=== PATIENT | female | born 1935 | race Caucasian/White ===

== ENCOUNTER 2017-01-31 21:57 | Inpatient (IN) ==
[2017-01-31] MEDS ORDERED: 0.9 % SODIUM CHLORIDE 1,000 ML IV ONE (22:11)
[2017-01-31] MEDS ORDERED: ONDANSETRON 4 MG/2 ML VIAL IV ONE (22:45)
[2017-01-31] MEDS ORDERED: HYDROmorphone 2 MG/ML SYRINGE IV PRN (22:45)
[2017-01-31] MEDS ORDERED: HYDROmorphone 2 MG/ML SYRINGE ONE (22:52)
--- NOTE | 2017-01-31 22:56 | Emergency Department Note ---
Lower Extremity Injury HPI - General Chief Complaint: Extremity Injury, Lower Stated Complaint: Left Hip injury Time Seen by Provider: 01/31/17 22:43 Mode of arrival: EMS - History of Present Illness HPI Narrative: Patient states she tripped over her walker landing on the left hip. Denies any history of head injury, there is no history of any syncope, no recent fever or chills she denies any nausea vomiting or headache. Denies any distal numbness, she is brought in by ambulance, not able to put any weight on her left leg. She was given 75 g of fentanyl en route. MD complaint: hip injury - Related Data Previous Rx's Medication Instructions Recorded omega-3 fatty acids-fish oil 300 1 each PO DAILY #30 cap 04/18/16 mg-1,000 mg capsule loratadine 10 mg tablet 10 mg PO DAILY #90 tab 09/12/16 citalopram 20 mg tablet 20 mg PO DAILY #90 tab 10/27/16 lisinopril 20 1 tab PO DAILY #90 tab 10/27/16 mg-hydrochlorothiazide 12.5 mg tablet aspirin 81 mg tablet,delayed 81 mg PO DAILY #90 tab 11/03/16 release metformin ER 500 mg 500 mg PO DAILY #90 tab 11/03/16 tablet,extended release 24 hr nadolol 20 mg tablet 20 mg PO DAILY #90 tab 11/03/16 furosemide 20 mg tablet 20 mg PO QDAY #30 tab 01/25/17 Allergies Allergy/AdvReac Type Severity Reaction Status Date / Time No Known Drug Allergies Allergy Verified 01/25/17 16:29 Review of Systems All systems ED: reviewed and negative except as stated. Past Medical History - Past Medical History Medical history: Reports: CVA, diabetes, hyperlipidemia, hypertension, other ( Chronic pain, peptic ulcer disease) Surgical history ED: Reports: , cholecystectomy Family history: Reports: no significant family history - Social History smoking status: Never smoker Alcohol use: Reports: None Physical Exam - General Limitations: no limitations General appearance: alert, in distress - Head Head exam: atraumatic, normocephalic, normal inspection - Eye Eye exam: Present: normal appearance, PERRL, EOMI. Absent: scleral icterus - ENT ENT exam: normal exam, normal oropharynx, mucous membranes moist, TM's normal bilaterally, normal external ear exam - Neck Neck exam: Present: normal inspection, full ROM, trachea midline - Chest Chest inspection: Present: normal inspection. Absent: tenderness - Respiratory Respiratory exam: Present: normal lung sounds bilaterally. Absent: respiratory distress, wheezes - Cardiovascular Cardiovascular exam: Present: regular rate, normal heart sounds - Abdominal Exam Abdominal exam: Present: soft, normal bowel sounds. Absent: distention, tenderness, guarding - Extremities Exam Extremities exam: Present: tenderness, joint swelling, other (externally rotated and shortened left leg, tender ov over the trochanter and left groi). Absent: calf tenderness - Back Exam Back exam: Present: full ROM. Absent: CVA tenderness (R), CVA tenderness (L), vertebral tenderness - Neurological Exam Neurological exam: Present: alert, oriented X3, CN II-XII intact. Absent: motor sensory deficit - Psychiatric Psychiatric exam: Present: normal affect, normal mood - Skin Skin exam: Present: warm, dry, intact Course Vital Signs Temperature 97.0 F 01/31/17 21:58 Pulse Rate 92 H 01/31/17 21:58 Respiratory Rate 18 01/31/17 21:58 Blood Pressure 125/70 01/31/17 21:58 Pulse Oximetry (%) 91 01/31/17 21:58 Temperature 97.0 F 01/31/17 21:58 Pulse Rate 92 H 01/31/17 21:58 Respiratory Rate 18 01/31/17 21:58 Blood Pressure 125/70 01/31/17 21:58 Pulse Oximetry (%) 91 01/31/17 21:58 Extremity Injury, Lower - MDM Narrative Medical decision making narrative: impression is left femoral neck frac Fracture plan is hospital admiss, discussed with Dr. Chauhan and Dr. Murrieta - Radiology Data Radiology results reviewed: Yes I reviewed the patient's radiology results. Disposition Pt seen by [facility]ORIST HELPER/PA only: No Clinical Impression: Fracture of hip Disposition: Xfer As Inpt ([facility]) Condition: Fair Referrals: Chuck Isabel DO [Primary Care Provider] -
[2017-01-31] MEDS ORDERED: MAGNESIUM HYDROXIDE 30 ML ORAL.SUSP PO PRN (23:29)
[2017-01-31] MEDS ORDERED: DEXTROSE 50% 50 ML VIAL IV PRN (23:29)
[2017-01-31] MEDS ORDERED: ONDANSETRON 4 MG/2 ML VIAL IV PRN (23:29)
[2017-01-31] MEDS ORDERED: ALBUTEROL SULFATE 2.5 MG/3 ML NEBULIZER NEB PRN (23:29)
[2017-01-31] MEDS ORDERED: DOCUSATE SODIUM 100 MG CAPSULE PO PRN (23:29)
[2017-01-31] MEDS ORDERED: NALOXONE HCL 0.4 MG/ML VIAL IV PRN (23:29)
[2017-01-31] MEDS ORDERED: ACETAMINOPHEN 325 MG TABLET PO PRN (23:29)
[2017-01-31] MEDS: POTASSIUM CHLORIDE 20 MEQ in 0.9 % SODIUM CHLORIDE 1,000 ML IV SCH (23:54)
[2017-02-01 00:07] LABS: Basophils # (Auto) 0.1 K/mcL (0.0-0.3); Basophils % (Auto) 0.5 % (0.0-2.0); Eosinophils # (Auto) 0.4 K/mcL (0.0-0.7); Eosinophils % (Auto) 3.5 % (0.0-7.0); Granulocytes % (Auto) 75.4 % (38.0-78.0); Lymphocytes # (Auto) 1.6 K/mcL (1.5-4.8); Lymphocytes % (Auto) 14.6 % (15.5-49.0); Mean Cell Volume 86.8 fL (80.0-100.0); Mean Corpuscular HGB Conc 33.6 g/dL (31.0-36.0); Mean Corpuscular Hemoglobin 29.2 pg (26.0-34.0); Monocytes # (Auto) 0.6 K/mcL (0.1-0.9); Platelet Count 256 K/mcL (140-440); RBC 4.55 M/mcL (4.00-5.20); Red Cell Distribution Width 13.7 % (11.5-14.5)
[2017-02-01 00:26] LABS: ALT/SGPT 32 U/l (0-40); Albumin 3.7 gm/dL (3.2-5.2); Albumin/Globulin Ratio 1.3 (1.0-2.3); Alkaline Phosphatase 55 U/L (39-117); Blood Urea Nitrogen 29 mg/dl (8-23)
[2017-02-01] MEDS: INSULIN LISPRO 1 UNIT/0.01 ML UNIT SQ SCH ×5 (00:33→22:13)
[2017-02-01] MEDS: 0.9 % SODIUM CHLORIDE 10 ML SYRINGE IV SCH ×3 (05:22→22:08)
[2017-02-01 05:55] LABS: Basophils # (Auto) 0 K/mcL (0.0-0.3); Basophils % (Auto) 0 % (0.0-2.0); Eosinophils # (Auto) 0.1 K/mcL (0.0-0.7); Eosinophils % (Auto) 0.7 % (0.0-7.0); Granulocytes % (Auto) 79.2 % (38.0-78.0); Lymphocytes # (Auto) 1.6 K/mcL (1.5-4.8); Lymphocytes % (Auto) 13.5 % (15.5-49.0); Mean Cell Volume 87.7 fL (80.0-100.0); Mean Corpuscular HGB Conc 33.2 g/dL (31.0-36.0); Mean Corpuscular Hemoglobin 29.2 pg (26.0-34.0); Monocytes # (Auto) 0.8 K/mcL (0.1-0.9); Monocytes % (Auto) 6.6 % (1.0-12.0); Platelet Count 236 K/mcL (140-440); RBC 4.37 M/mcL (4.00-5.20); Red Cell Distribution Width 13.5 % (11.5-14.5)
[2017-02-01 06:18] LABS: ALT/SGPT 86 U/l (0-40); Albumin 3.6 gm/dL (3.2-5.2); Albumin/Globulin Ratio 1.4 (1.0-2.3); Alkaline Phosphatase 51 U/L (39-117); Bilirubin,Direct < 0.2 mg/dL (0.0-0.3); Blood Urea Nitrogen 26 mg/dl (8-23); Gamma Glutamyl Transpeptidase 133 U/L (5-36); Uric Acid 7.8 mg/dL (2.5-8.0)
--- NOTE | 2017-02-01 06:27 | XRay Report ---
CLINICAL INFORMATION: Trauma COMPARISON: None. FINDINGS: A mildly comminuted, obliquely oriented subtrochanteric fracture of the left hip is present. There is 1 cm medial and anterior displacement of the distal femoral diaphysis. Mild coxa vera angulation. Mild degenerative changes are present in both SI and right hip joint. Left hip joint appears normal. Soft tissues are unremarkable IMPRESSION: Obliquely oriented, mildly displaced subtrochanteric fracture of the left hip Interpreted and Authenticated by: Chuck Kay 02/01/17
[2017-02-01 06:28] LABS: Estimated Average Glucose(eAG) 128 mg/dL; Hemoglobin A1C 6.1 % HGB (4.0-6.0)
--- NOTE | 2017-02-01 06:28 | XRay Report ---
CLINICAL INFORMATION: Trauma COMPARISON: 09/26/2005 FINDINGS: Heart size, mediastinum and pulmonary vessels are normal. The lungs are clear. No effusions. Moderate elevation of the right diaphragm has progressed from previous study. IMPRESSION: Moderate elevation right diaphragm progressed from previous study. No acute findings Interpreted and Authenticated by: Chuck Kay 02/01/17
--- NOTE | 2017-02-01 07:23 | Internal Med History&Physical ---
Medical - H&P: HPI Patient information: Note initiated : 02/01/17 at 7:21 am Service Date, if different from initiated Date: [] Patient: Trang Caraballo 81 y/o F admitted on 01/31/17 for Left Hip injury. Chief Complaint: [] History of present illness: Ms. Caraballo is a 81 year old woman who lives at [facility] in an assisted living apartment. She says yesterday she was walking towards her bathroom with a walker, and the walker seem to get away from her moving forward, and she could not catch herself, and then fell. She had immediate pain in the left hip. She reports she is also been having a lot of pain in the left knee lately, and is not sure that she is not having side effects from medication she was given for that. She says she has also been feeling a little dizzy with some changes in her medications lately. She has had some occasional nausea but not persistent. She notes that the walker she was using was brand-new and had wheels. Otherwise, she denies recent fever or chills, headaches, new eye or ear symptoms , sore throat. She notes she has had a cough for several months, which she blames on allergies. She denies chest pain or palpitations, shortness of breath or wheezing, abdominal pain, nausea or vomiting, diarrhea or constipation , dysuria. ER evaluation did show a fracture of her left hip. Medical History Compression fracture of lumbar vertebra (Chronic) Diabetes mellitus (Chronic) Hyperlipidemia (Chronic) Major depressive disorder with single episode (Chronic) PUD (peptic ulcer disease) (Chronic) Right shoulder pain (Chronic) from fall Rotator cuff strain (Chronic) right Seborrheic keratoses (Chronic) Status post right knee replacement (Chronic) Surgical History History of cholecystectomy (Chronic) Medication List Furosemide 20 mg daily aspirin 81 mg PO DAILY citalopram 20 mg PO DAILY lisinopril-hydrochlorothiazide 20-12.5 mg 1 tab PO DAILY loratadine 10 mg PO DAILY metformin ER 500 mg PO DAILY nadolol 20 mg PO DAILY omega-3 fatty acids-fish oil 300-1,000 mg 1 ea PO DAILY Allergies/Adverse Reactions No Known Drug Allergies Allergy Social History smoking status: Never smoker alcohol intake frequency: does not drink substance use type: does not use She lives at [facility]. She is a . She has 1 of her children that lives nearby. Another lives out of town. Family history: She believes her sister had a stroke. Her father may have had heart disease. Medical - H&P: Meds Home Medications Medication Instructions Recorded Confirmed Type omega-3 fatty acids-fish oil 300 1 each PO DAILY #30 cap 04/18/16 02/01/17 Rx mg-1,000 mg capsule loratadine 10 mg tablet 10 mg PO DAILY #90 tab 09/12/16 02/01/17 Rx citalopram 20 mg tablet 20 mg PO DAILY #90 tab 10/27/16 02/01/17 Rx lisinopril 20 1 tab PO DAILY #90 tab 10/27/16 02/01/17 Rx mg-hydrochlorothiazide 12.5 mg tablet aspirin 81 mg tablet,delayed 81 mg PO DAILY #90 tab 11/03/16 02/01/17 Rx release metformin ER 500 mg 500 mg PO DAILY #90 tab 11/03/16 02/01/17 Rx tablet,extended release 24 hr nadolol 20 mg tablet 20 mg PO DAILY #90 tab 11/03/16 02/01/17 Rx furosemide 20 mg tablet 20 mg PO QDAY #30 tab 01/25/17 02/01/17 Rx Allergies Allergy/AdvReac Type Severity Reaction Status Date / Time No Known Drug Allergies Allergy Verified 01/25/17 16:29 Medical - H&P: Exam - Constitutional Vitals: Temp Pulse Resp BP Pulse Ox 97.6 F 105 H 20 155/75 96 02/01/17 03:14 02/01/17 03:14 02/01/17 03:14 02/01/17 03:14 02/01/17 03:14 On exam, she is awake and alert. She continues to complain of pain starting in the left hip and running down to her knee as well as up into her side. She is otherwise not in acute distress. Head: Normocephalic, atraumatic. Eyes: Pupils are fairly pinpoint, EOMI, anicteric. Ears: TMs and canals are clear. Pharynx: Mucosa appears normal. The pharynx is quite crowded. Maladies are noted. Neck: Is supple, without obvious lymphadenopathy, JVD, thyromegaly, bruits. Cardiac exam: Shows regular rate and rhythm with normal S1 and S2, without murmurs, rubs, gallops. Lungs: Clear to auscultation, without rales, rhonchi, wheezes. Abdomen: Is obese with a well-healed lower midline scar. Abdomen is soft and nontender with active bowel sounds. Extremities: Show trace chronic edema, but no cyanosis or clubbing. Left leg is held in external rotation. She is able to move her feet and toes fine and neurovascular is intact. Neurologic exam: Patient is rather forgetful, but motor exam is grossly nonfocal. She is alert, calm and cooperative. Medical - H&P: Reslt - Labs CBC & Chem 7: 02/01/17 04:15 02/01/17 04:15 Labs: Short CBC 02/01/17 Range/Units 04:15 WBC 12.2 H (4.5-11.0) K/mcL Hgb 12.7 (12.0-15.0) g/dL Hct 38.3 (36.0-48.0) % Plt Count 236 (140-440) K/mcL BMP 02/01/17 04:15 Sodium 142 Potassium 4.3 Chloride 104 Carbon Dioxide 28 BUN 26 H Creatinine 0.9 Glucose 147 H Calcium 8.7 Liver Function 02/01/17 Range/Units 04:15 Total Bilirubin 0.4 (0.0-1.0) mg/dL Direct Bilirubin < 0.2 (0.0-0.3) mg/dL GGT 133 H (5-36) U/L AST 133 H (0-37) U/l ALT 86 H (0-40) U/l Alkaline Phosphatase 51 (39-117) U/L Albumin 3.6 (3.2-5.2) gm/dL Ekg shows ST at 100, low voltage. CXR: NAD Hip xray: L subtroch. fx Medical - H&P: A/P - Narrative A/P Narrative: #1. Left hip fracture. Orthopedic consult, with presumed surgical repair today. Patient appears to be fairly low risk for surgical complications, other than her age. -Physical therapy and occupational therapy evaluations postop. Hopefully they can assess whether the walker she was using is appropriate for her. 2. Endocrine. Type 2 diabetes. Accu-Cheks and sliding scale insulin. Maintenance IV fluids while n.p.o.. Resume metformin once she is eating well. 3. CODE STATUS: Chart notes a DNR CODE STATUS. Patient confirms this. She would like either her son or her daughter to act as her POA. 4. DVT prophylaxis: This will need to be started postop. SCDs for now. 5. History of hypertension Resume aspirin, nadolol, lisinoprilHCTZ, when stable. Lasix is on hold for now, while she is n.p.o. 6. Hyperlipidemia #7. History of depression. Resume citalopram after surgery. 8. History of allergies. Resume loratadine. This visit took approximately 55 minutes to review the patient's records, review her case with the ER MD, interview and examine her, and write orders. Medical - H&P: Qual - VTE Deep Vein Thrombosis/Pulmonary Embolism Present on Admission: No
--- NOTE | 2017-02-01 08:16 | Orthopedic History & Physical ---
History of Present Illness Patient information: Note initiated : 02/01/17 at 8:13 am Service Date, if different from initiated Date: [] Patient: Trang Caraballo 81 y/o F admitted on 01/31/17 for Left Hip injury. Chief Complaint: [left hip fracture] Patient is an 81 year old female who was walking with her walker when she felt it give way and she landed on her left hip. She denies hitting her head or losing consciousness during the event. She was transported to [facility] and found to have a left displaced subtrochanteric hip fracture and was admitted overnight for pain control and observation. She currently lives alone in an apartment complex. She denies any complications with her prior surgeries under anesthesia and denies a PMH of CVA, DVT or TIA. She currently denies numbness, tingling of the extremities as well as no CP, SOB, calf pain or tenderness. HPI: Ms. Caraballo is a 81 year old F Review of Systems All systems PM: reviewed and no additional remarkable complaints except as stated Constitutional: as per HPI Cardiovascular: no chest pain Respiratory: no dyspnea Musculoskeletal: abnormal gait, muscle cramps, muscle weakness, no numbness, no tingling Musculoskeletal: left: hip pain Neurological: no numbness, no paresthesias Past History Past medical history: see hospitalist note Medications and Allergies Home Medications Medication Instructions Recorded Confirmed Type omega-3 fatty acids-fish oil 300 1 each PO DAILY #30 cap 04/18/16 02/01/17 Rx mg-1,000 mg capsule loratadine 10 mg tablet 10 mg PO DAILY #90 tab 09/12/16 02/01/17 Rx citalopram 20 mg tablet 20 mg PO DAILY #90 tab 10/27/16 02/01/17 Rx lisinopril 20 1 tab PO DAILY #90 tab 10/27/16 02/01/17 Rx mg-hydrochlorothiazide 12.5 mg tablet aspirin 81 mg tablet,delayed 81 mg PO DAILY #90 tab 11/03/16 02/01/17 Rx release metformin ER 500 mg 500 mg PO DAILY #90 tab 11/03/16 02/01/17 Rx tablet,extended release 24 hr nadolol 20 mg tablet 20 mg PO DAILY #90 tab 11/03/16 02/01/17 Rx furosemide 20 mg tablet 20 mg PO QDAY #30 tab 01/25/17 02/01/17 Rx Allergies Allergy/AdvReac Type Severity Reaction Status Date / Time No Known Drug Allergies Allergy Verified 01/25/17 16:29 Physical Examination - Hip left Gait: other (non WB, shortened and externally rotated) Tenderness with palpation: anterior, posterior, medial, lateral, greater trochanter Pain with motion: internal rotation and hip flexion, internal rotation and hip extension, external rotation and hip flexion, external rotation and hip extension Results - Labs Result Diagrams: 02/01/17 04:15 02/01/17 04:15 Labs: Abnormal lab results 02/01/17 02/01/17 Range/Units 04:15 04:15 WBC 12.2 H (4.5-11.0) K/mcL Gran % 79.2 H (38.0-78.0) % Lymph % (Auto) 13.5 L (15.5-49.0) % Gran # 9.6 H (1.8-8.0) K/mcL BUN 26 H (8-23) mg/dl Glucose 147 H (70-105) mg/dL Hemoglobin A1c 6.1 H (4.0-6.0) % HGB GGT 133 H (5-36) U/L AST 133 H (0-37) U/l ALT 86 H (0-40) U/l Lactate Dehydrogenase 291 H (94-250) U/L H & H 02/01/17 Range/Units 04:15 Hgb 12.7 (12.0-15.0) g/dL Hct 38.3 (36.0-48.0) % All other labs normal. - Diagnostic results Hip x-ray: report reviewed, image reviewed Assessment and Plan (1) Fracture of hip Left displaced subtrochanteric hip fracture: Plan is for a left hip ORIF with gamma nail later today with Dr. Chauhan. The procedure was discussed in its entirety with the patient including the benefits and risks associated as well as the risks of anesthesia. She was counseled on the post op course and all questions were answered. No guarantees were made. The patient understands all risks therein and wishes to proceed with surgery later today. -hold all blood thinners -pain control -NPO -DVT prophylaxis -medical care per hospitalist Status: Acute
[2017-02-01 08:29] LABS: Appearance,Urine HAZY; Bacteria,Urine FEW /hpf (0); Bilirubin,Urine NEG (NEG); Color,Urine YELLOW; Glucose,Urine (UA) NEGATIVE (NEG); Leukocyte Esterase,Urine 500 /uL (NEG); Mucus,Urine FEW /hpf (0); Nitrate,Urine NEG (NEG); Protein,Urine 100 mg/dL (NEG); Specific Gravity,Urine 1.017 (1.000-1.035); Uric Acid Crystals,Urine FEW /hpf (0); Urine Blood >=1.0 mg/dL (<0.03); Urine RBC > 182 /hpf (0-1); Urine Squamous Epithelial Cell < 1 /hpf (0-4); Urine WBC 124 /hpf (0-4); Urobilinogen,Urine NEG (NEG)
[2017-02-01] MEDS ORDERED: ASPIRIN 325 MG ENTERIC COATED TABLET PO SCH (09:00)
[2017-02-01] MEDS ORDERED: ceFAZolin 1 GM VIAL IV SCH ×2 (09:00→22:00)
[2017-02-01] MEDS: POTASSIUM CHLORIDE 20 MEQ in 0.9 % SODIUM CHLORIDE 1,000 ML IV SCH (10:47)
[2017-02-01] MEDS ORDERED: MIDAZOLAM 2 MG/2 ML VIAL IV ONE (14:35)
[2017-02-01] MEDS ORDERED: DEXAMETHASONE 10 MG/ML VIAL IV ONE (14:35)
[2017-02-01] MEDS ORDERED: NALBUPHINE 10 MG/ML AMPUL IV ONE (14:35)
[2017-02-01] MEDS ORDERED: PROPOFOL 200 MG/20 ML VIAL IV ONE (14:35)
[2017-02-01] MEDS ORDERED: LIDOCAINE HCL/PF 100 MG/5 ML SYRINGE IV ONE (14:35)
[2017-02-01] MEDS ORDERED: ONDANSETRON 4 MG/2 ML VIAL IV ONE (14:35)
[2017-02-01] MEDS ORDERED: fentaNYL 100 MCG/2 ML VIAL IV ONE (14:35)
[2017-02-01] MEDS ORDERED: MEPERIDINE 25 MG/ML SYRINGE IV PRN (15:05)
[2017-02-01] MEDS ORDERED: fentaNYL 100 MCG/2 ML VIAL IV PRN (15:05)
[2017-02-01] MEDS ORDERED: diphenhydrAMINE 50 MG/ML VIAL IV PRN (15:05)
[2017-02-01] MEDS ORDERED: HYDROmorphone 2 MG/ML SYRINGE IV PRN ×3 (15:05→18:40)
[2017-02-01] MEDS ORDERED: IPRATROPIUM/ALBUTEROL 3 ML AMPUL.NEB NEB PRN (15:05)
[2017-02-01] MEDS ORDERED: NALOXONE HCL 0.4 MG/ML VIAL IV PRN ×2 (15:05→18:40)
[2017-02-01] MEDS ORDERED: FLUMAZENIL 0.1 MG/ML ML IV PRN (15:05)
[2017-02-01] MEDS ORDERED: ONDANSETRON 4 MG/2 ML VIAL IV PRN ×2 (15:05→18:40)
[2017-02-01] MEDS ORDERED: LACTATED RINGERS 250 ML IV PRN (15:05)
[2017-02-01] MEDS ORDERED: BENZOCAINE/MENTHOL 1 LOZENGE PO PRN ×3 (15:05→18:40)
[2017-02-01] MEDS ORDERED: LACTATED RINGERS 1,000 ML IV SCH (15:15)
[2017-02-01] MEDS ORDERED: METHOCARBAMOL 750 MG TABLET PO PRN (15:29)
[2017-02-01] MEDS ORDERED: FLEETS ADULT ENEMA PR PRN (15:29)
[2017-02-01] MEDS ORDERED: HYDROcodone/APAP 10/325MG TABLET PO PRN (15:29)
[2017-02-01] MEDS ORDERED: POLYETHYLENE GLYCOL 3350 17 GM PACKET PO PRN ×2 (15:29→18:40)
[2017-02-01] MEDS ORDERED: BISACODYL 10 MG SUPP.RECT PR PRN ×2 (15:29→18:40)
[2017-02-01] MEDS ORDERED: MAGNESIUM HYDROXIDE 30 ML ORAL.SUSP PO PRN ×2 (15:29→18:40)
--- NOTE | 2017-02-01 15:29 | Brief Operative Note ---
Date of procedure: 02/01/17 Pre-op diagnosis: left hip intertrochanteric fx Post-op diagnosis: same Procedure: gamma nail left hip Grafts/Implants: Yes Anesthesia: GETA Complications: none Surgeon: Chuck Chauhan [facility] Social Worker: Gayla Le Estimated blood loss (cc): 50 Specimens Removed/Pathology: none sent Condition: stable Disposition: PACU
[2017-02-01] MEDS ORDERED: 0.9 % SODIUM CHLORIDE 1,000 ML IV SCH (15:30)
[2017-02-01] MEDS ORDERED: TRANEXAMIC ACID 1,000 MG/10 ML VIAL IV ONE (16:04)
--- NOTE | 2017-02-01 16:10 | Operative Note ---
DATE OF OPERATION: 02/01/2017 PREOPERATIVE DIAGNOSIS: Intertrochanteric/subtrochanteric fracture, left hip. POSTOPERATIVE DIGNOSIS: Intertrochanteric/subtrochanteric fracture, left hip. PROCEDURE: Left hip cephalomedullary nailing. SURGEON: Rosie Chauhan M.D. OIL SPREADER OPERATOR SURGEON: Gayla Le PA-C. ANESTHESIA: Spinal with LMA assist. ESTIMATED BLOOD LOSS: 100 mL. COMPLICATIONS: None noted. SPECIMENS REMOVED: None. DRAINS: None. IMPLANTS: Gamma3 nail 125 degree short with an 85 mm proximal screw and 32.5 x 5 mm distal screw. INDICATIONS: The patient fell and was unable to ambulate. Radiographs have confirmed a displaced intertrochanteric fracture of the proximal femur. The patient was admitted to the hospital and underwent medical clearance. After a long discussion about treatment options, the patient elected to proceed with cephalomedullary nailing. The risks and benefits were discussed with the patient in detail including, but not limited to, the risks of anesthesia, problems with the heart or lungs related to anesthesia, infection, compromise or injury to the nerves and blood vessels, deep venous thrombosis, pulmonary embolism, pneumonia, continued pain after surgery, worsening pain or symptoms after surgery, swelling, loss of motion, malunion, non-union, leg length discrepancy, and need for repeat surgery. DESCRIPTION OF PROCEDURE: The patient was seen in pre-anesthesia waiting room where all questions were answered and the correct side and site were identified and marked. The patient was then brought to the operating room and administered the anesthetic and given preoperative antibiotics. A time-out was then called. The patient was placed on the fracture table with all prominences well padded. The leg was brought into traction, adduction, and slight internal rotation. We used C-arm with orthogonal views to confirm anatomic reduction of the fracture. The extremity was prepped and draped in the usual sterile fashion. C-arm was again used to confirm landmarks. A percutaneous incision was created about 4 centimeters proximal to the greater trochanter. A guide pin was placed into the femoral canal under fluoroscopy after we found the appropriate starting position along the medial boarder of the trochanter and just anterior to the center position laterally. We placed a protector sleeve proximally and over-reamed with the 17 mm proximal reamer. Next, we changed out the guide pin for a ball-tipped guide mary and placed it into the femoral canal. Position was confirmed with the C-arm. The 180 mm [place] Gamma nail was then placed with appropriate depth and version using the percutaneous targeting guide. The lateral lag screw sleeve was placed in the targeting guide and a second small percutaneous incision was made to allow the sleeve access to the lateral cortex of the femur. We drilled the guide pin into the center - center position of the femoral head confirmed with fluoroscopy. We measured and drilled over the guide pin. The lag screw was then inserted and we compressed the fracture then placed the proximal screw. The targeting sleeve was again used to place a percutaneous 5.0 mm screw distally in the static hole. It was drilled, measured, and placed using C-arm guidance. Traction was removed on the hip. The targeting device was then removed and final radiographs were taken confirming reduction of the fracture and adequate placement of all hardware. We thoroughly irrigated the three percutaneous incisions and closed the deep fascia with #0 Vicryl. We closed the subcutaneous tissue and skin in layers out to brant in the skin. A sterile pressure dressing was applied. All needle and sponge counts were correct. The patient was transferred to the recovery room in stable condition. Jay Job ID: [id number] Doc ID: [id number] Rosie Chauhan MD
[2017-02-01] MEDS ORDERED: LABETALOL 5 MG/ML ML IV ONE (16:29)
--- NOTE | 2017-02-01 16:32 | XRay Report ---
CLINICAL INFORMATION: Follow subtrochanteric fracture COMPARISON: None. FINDINGS: Gamma nail transfixes the subtrochanteric fracture which is now anatomically aligned following reduction. Both SI joints unremarkable. Soft tissue swelling seen as expected. IMPRESSION: ORIF subtrochanteric fracture left hip anatomic alignment Interpreted and Authenticated by: Chuck Kay 02/01/17
[2017-02-01] MEDS ORDERED: DEXTROSE 50% 50 ML VIAL IV PRN ×2 (18:40)
[2017-02-01] MEDS ORDERED: POTASSIUM CHLORIDE 20 MEQ in 0.9 % SODIUM CHLORIDE 1,000 ML IV SCH (18:40)
[2017-02-01] MEDS ORDERED: DEXTROSE 31 GM ORAL.SUSP PO PRN (18:40)
[2017-02-01] MEDS ORDERED: DOCUSATE SODIUM 100 MG CAPSULE PO PRN (18:40)
[2017-02-01] MEDS ORDERED: ALBUTEROL SULFATE 2.5 MG/3 ML NEBULIZER NEB PRN (18:40)
[2017-02-01] MEDS: NACL 0.9% W/KCL 20MEQ 1,000 ML IV SCH (18:55)
[2017-02-01] MEDS ORDERED: DOCUSATE SODIUM 100 MG CAPSULE PO SCH (21:00)
[2017-02-01] MEDS ORDERED: SENNOSIDES 1 TABLET PO SCH (21:00)
[2017-02-01] MEDS: SENNOSIDES 1 TABLET PO SCH (22:03)
[2017-02-01] MEDS: ACETAMINOPHEN 325 MG TABLET PO PRN (22:04)
[2017-02-01] MEDS: ceFAZolin 1 GM VIAL IV SCH (22:05)
[2017-02-02] MEDS: ACETAMINOPHEN 325 MG TABLET PO PRN ×3 (04:10→16:54)
[2017-02-02] MEDS: NACL 0.9% W/KCL 20MEQ 1,000 ML IV SCH ×3 (04:37→16:54)
[2017-02-02] MEDS: ceFAZolin 1 GM VIAL IV SCH (05:28)
[2017-02-02] MEDS: 0.9 % SODIUM CHLORIDE 10 ML SYRINGE IV SCH ×3 (05:29→21:06)
[2017-02-02 06:09] LABS: Basophils # (Auto) 0 K/mcL (0.0-0.3); Basophils % (Auto) 0 % (0.0-2.0); Eosinophils # (Auto) 0 K/mcL (0.0-0.7); Eosinophils % (Auto) 0 % (0.0-7.0); Lymphocytes # (Auto) 0.7 K/mcL (1.5-4.8); Lymphocytes % (Auto) 7.2 % (15.5-49.0); Mean Cell Volume 87.9 fL (80.0-100.0); Mean Corpuscular HGB Conc 33.8 g/dL (31.0-36.0); Mean Corpuscular Hemoglobin 29.7 pg (26.0-34.0); Monocytes # (Auto) 0.7 K/mcL (0.1-0.9); Monocytes % (Auto) 6.8 % (1.0-12.0); Platelet Count 203 K/mcL (140-440); Red Cell Distribution Width 13.3 % (11.5-14.5)
[2017-02-02 06:41] LABS: ALT/SGPT 124 U/l (0-40); Albumin 3.1 gm/dL (3.2-5.2); Albumin/Globulin Ratio 1.2 (1.0-2.3); Alkaline Phosphatase 60 U/L (39-117); Bilirubin,Direct < 0.2 mg/dL (0.0-0.3); Blood Urea Nitrogen 19 mg/dl (8-23); Gamma Glutamyl Transpeptidase 159 U/L (5-36); Magnesium 1.9 mg/dL (1.6-2.5); Uric Acid 7.1 mg/dL (2.5-8.0)
--- NOTE | 2017-02-02 07:00 | Orthopedic Progress Note ---
Subjective Patient information: Note initiated : 02/02/17 at 6:59 am Service Date, if different from initiated Date: [] Patient: Trang Caraballo 81 y/o F admitted on 01/31/17 for Left Hip Injury/Left Hip Fracture. Chief Complaint: [] Interval history: doing well. no pain Objective Vital signs: Vital Signs Temp Pulse Resp BP Pulse Ox 02/02/17 04:00 98.0 F 89 12 140/78 94 02/01/17 23:53 98.1 F 99 H 16 125/74 94 02/01/17 19:52 137/79 96 02/01/17 17:44 85 145/66 96 02/01/17 17:25 82 152/69 02/01/17 17:08 87 12 152/69 97 02/01/17 16:55 90 12 145/67 93 02/01/17 16:40 97 F 90 12 145/67 93 02/01/17 16:30 99.1 F H 94 H 19 155/58 94 02/01/17 16:15 99.2 F H 92 H 13 192/103 100 02/01/17 16:10 95 H 13 161/91 99 02/01/17 16:05 88 10 L 165/78 97 02/01/17 16:00 89 10 L 170/45 97 02/01/17 15:55 98 H 11 L 186/90 97 02/01/17 15:50 99 H 13 184/92 100 02/01/17 15:45 97.3 F 88 12 141/89 97 02/01/17 12:00 97.3 F 20 143/69 94 02/01/17 07:39 98 02/01/17 07:25 97.1 F 20 147/71 94 Intake and Output 02/01/17 02/02/17 02/02/17 21:59 05:59 13:59 Intake Total 800 / 800 915 / 915 Output Total 1000 / 1000 275 / 275 Balance -200 / -200 640 / 640 Intake: IV 815 / 815 NaCl 0.9% W/KCl 20Meq 815 / 815 1000ML 1,000 ml @ 84 mls/ hr IV .[id number] [facility] Rx#: [id number] Oral 100 / 100 Other 800 / 800 Output: Urine Catheter Amount 275 / 275 Estimated Blood Loss 1000 / 1000 Other: Weight 176 lb Intake & Output: Intake & Output 02/01/17 02/02/17 02/02/17 21:59 05:59 13:59 Intake Total 800 / 800 915 / 915 Output Total 1000 / 1000 275 / 275 Balance -200 / -200 640 / 640 Weight 176 lb Intake: IV 815 / 815 NaCl 0.9% W/KCl 20Meq 815 / 815 1000ML 1,000 ml @ 84 mls/ hr IV .[id number] [facility] Rx#: [id number] Oral 100 / 100 Other 800 / 800 Output: Urine Catheter Amount 275 / 275 Estimated Blood Loss 1000 / 1000 Incision: Yes healing Dressing: Yes clean, Yes dry, Yes intact Weight bearing status: full Neurological exam IM: Yes abnormal gait, Yes alert, Yes oriented X3, Yes motor sensory intact, Yes neurovascular intact Extremities exam IM: No calf tenderness, Yes Foot pink and warm, Yes neurovascular intact - Labs CBC & BMP: 02/02/17 04:17 02/02/17 04:17 Labs: Orthopedic Labs 02/02/17 04:17 PT 14.5 INR 1.1 02/02/17 02/01/17 02/01/17 04:17 20:06 04:15 Hgb 11.0 L 12.4 12.7 Hct 32.5 L 37.0 38.3 Assessment and Plan (1) Fracture of hip pod 1 s/p left hip gamma nail wbat pain control dvt prophylaxis d/c planning - rehab when bed available Status: Acute
--- NOTE | 2017-02-02 07:01 | Discharge Summary ---
Ortho Discharge Plan - General - Patient Instructions Diet: Regular Diet Activity: activity as tolerated, ambulate with assistive device, weight bearing as tolerated Dressing Care: May shower in 2 days - Problem Maintenance (1) Fracture of hip Status: Acute - Follow Up Plan Follow Up Appointments: Chuck Isabel DO [Primary Care Provider] - Disposition: [facility] Prognosis: Fair Rehab Potential: Fair I certify that the patient requires SNF services: Yes Overall status at discharge: patient is progressing back to baseline
[2017-02-02] MEDS: FUROSEMIDE 20 MG TABLET PO SCH (08:31)
[2017-02-02] MEDS: NADOLOL 20 MG TABLET PO SCH (08:32)
[2017-02-02] MEDS: INSULIN LISPRO 1 UNIT/0.01 ML UNIT SQ SCH ×4 (08:32→21:06)
[2017-02-02] MEDS: ASPIRIN 325 MG ENTERIC COATED TABLET PO SCH (08:32)
[2017-02-02] MEDS: LORATADINE 10 MG TABLET PO SCH (08:32)
[2017-02-02] MEDS: CITALOPRAM 20 MG TABLET PO SCH (08:32)
[2017-02-02] MEDS: FISH OIL 1,000 MG CAPSULE PO SCH (08:32)
[2017-02-02] MEDS ORDERED: NADOLOL 20 MG TABLET PO SCH (09:00)
[2017-02-02] MEDS ORDERED: CITALOPRAM 20 MG TABLET PO SCH (09:00)
[2017-02-02] MEDS ORDERED: FISH OIL 1,000 MG CAPSULE PO SCH (09:00)
[2017-02-02] MEDS ORDERED: FUROSEMIDE 20 MG TABLET PO SCH (09:00)
[2017-02-02] MEDS ORDERED: LORATADINE 10 MG TABLET PO SCH (09:00)
--- NOTE | 2017-02-02 13:07 | Internal Med Progress Note ---
Medical - PN: Subj Patient information: Note initiated : 02/02/17 at 1:06 pm Service Date, if different from initiated Date: [] Patient: Trang Caraballo 81 y/o F admitted on 01/31/17 for Left Hip Injury/Left Hip Fracture. Chief Complaint: [] Interval history: Ms. Caraballo is a 81 year old woman who lives at [facility] in an assisted living apartment. She says yesterday she was walking towards her bathroom with a walker, and the walker seem to get away from her moving forward, and she could not catch herself, and then fell. She had immediate pain in the left hip. She reports she is also been having a lot of pain in the left knee lately, and is not sure that she is not having side effects from medication she was given for that. She says she has also been feeling a little dizzy with some changes in her medications lately. She has had some occasional nausea but not persistent. She notes that the walker she was using was brand-new and had wheels. Otherwise, she denies recent fever or chills, headaches, new eye or ear symptoms , sore throat. She notes she has had a cough for several months, which she blames on allergies. She denies chest pain or palpitations, shortness of breath or wheezing, abdominal pain, nausea or vomiting, diarrhea or constipation , dysuria. ER evaluation did show a fracture of her left hip. 02/02 Pt seen examined, no acute complaints or concerns, s/p surgery doing well,. tolerating po diet well. ok to d/c sandoval if able to bp and glucose are at goals. Pertinent ROS: Denies headache, dizziness Denies chest pain, palpitations Denies cough or shortness of breath Denies abdominal pain, nausea or vomiting. - Constitutional Vitals: Vital Signs Temp Pulse Resp BP Pulse Ox 98.2 F 92 H 16 104/62 93 02/02/17 11:02/02/17 11:02/02/17 11:02/02/17 11:02/02/17 11: Period Temp Pulse Resp BP Sys/Carmen Pulse Ox Last 24 Hr 96.9 F-99.2 F 82-99 - 104-192/45-103 93-100 Intake and Output 02/01/17 02/02/1717 21:59 05:59 13:59 Intake Total 800 / 800 915 / 915 Output Total 1000 / 1000 275 / 275 Balance -200 / -200 640 / 640 Weight 176 lb Intake & Output: Intake & Output 02/01/17 02/02/17 02/02/17 21:59 05:59 13:59 Intake Total 800 / 800 915 / 915 Output Total 1000 / 1000 275 / 275 Balance -200 / -200 640 / 640 Weight 176 lb Intake: IV 815 / 815 NaCl 0.9% W/KCl 20Meq 815 / 815 1000ML 1,000 ml @ 84 mls/ hr IV .[id number] [facility] Rx#: [id number] Oral 100 / 100 Other 800 / 800 Output: Urine Catheter Amount 275 / 275 Estimated Blood Loss 1000 / 1000 Exam: Constitutional; Afebrile, cooperative, alert, not in distress. Eyes- No icterus, , No periorbital swelling Ears- Ext ear normal, hearing normal to conversation. Neck- Midline trachea, supple Respiratory system: Air Entry equal on both sides, No crackles or wheezing, no rhonchi. CVS- Rate rhythm regular, S1,S2 heard, no gallop, no rub. 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 Medical - PN: Obj Da - Labs CBC & Chem 7: 02/02/17 04:17 02/02/17 04:17 Labs: Abnormal Lab Results 02/02/17 02/02/17 02/01/17 04:17 04:17 07:51 WBC RBC 3.70 L Hgb 11.0 L Hct 32.5 L Gran % 86.0 H Lymph % (Auto) 7.2 L Gran # 8.7 H Lymph # (Auto) 0.7 L BUN Glucose 171 H Hemoglobin A1c Calcium 8.3 L GGT 159 H AST 97 H ALT 124 H Lactate Dehydrogenase Total Protein 5.7 L Albumin 3.1 L Urine Protein 100 A Urine Occult Blood >=1.0 A Ur Leukocyte Esterase 500 A Urine RBC > 182 H Urine WBC 124 H Uric Acid Crystals Few A Urine Bacteria Few A 02/01/17 02/01/17 04:15 04:15 WBC 12.2 H RBC Hgb Hct Gran % 79.2 H Lymph % (Auto) 13.5 L Gran # 9.6 H Lymph # (Auto) BUN 26 H Glucose 147 H Hemoglobin A1c 6.1 H Calcium GGT 133 H AST 133 H ALT 86 H Lactate Dehydrogenase 291 H Total Protein Albumin Urine Protein Urine Occult Blood Ur Leukocyte Esterase Urine RBC Urine WBC Uric Acid Crystals Urine Bacteria Meds: Medications Acetaminophen (Tylenol) 650 mg PO Q6HP PRN PRN Reason: PAIN/FEVER > 101 Last Admin: 02/02/17 11:20 Dose: 650 mg Hydrocodone Bitart/Acetaminophen (Trilla 10/325mg) 0 tab PO Q4HP PRN PRN Reason: Pain Albuterol Sulfate (Ventolin) 2.5 mg NEB Q2HP PRN PRN Reason: Shortness Of Breath Aspirin (Ecotrin) 325 mg PO DAILY [facility] Last Admin: 02/02/17 08:32 Dose: 325 mg Bisacodyl (Dulcolax) 10 mg WA Q2-3DAYS PRN PRN Reason: Constipation Citalopram Hydrobromide (Celexa) 20 mg PO DAILY [facility] Last Admin: 02/02/17 08:32 Dose: 20 mg Dextrose (Dextrose 50%) 0 ml IV UD PRN PRN Reason: Hypoglycemia Dextrose (Dextrose 50%) 0 ml IV UD PRN PRN Reason: Hypoglycemia Diagnostic Test (Pha) (Accu-Chek) 1 each FS ACHS [facility] Last Admin: 02/02/17 11:20 Dose: 1 each Docusate Sodium (Colace) 100 mg PO BID PRN PRN Reason: Constipation Fish Oil (Fish Oil) 1,000 mg PO DAILY [facility] Last Admin: 02/02/17 08:32 Dose: 1,000 mg Furosemide (Lasix) 20 mg PO QDAY [facility] Last Admin: 02/02/17 08:31 Dose: 20 mg Glucose (Insta-Glucose) 15 gm PO PRN PRN PRN Reason: Hypoglycemia Hydromorphone HCl (Dilaudid) 0 mg IV Q2HP PRN PRN Reason: Pain Potassium Chloride/Sodium Chloride (Nacl 0.9% W/Kcl 20meq 1000ml) 1,000 mls @ 84 mls/hr IV .[id number] [facility] Last Admin: 02/02/17 07:48 Dose: Not Given Insulin Human Lispro (Humalog) 0 unit SQ ACHS [facility] PRN Reason: Protocol Last Admin: 02/02/17 12:07 Dose: 1 unit Loratadine (Claritin) 10 mg PO DAILY [facility] Last Admin: 02/02/17 08:32 Dose: 10 mg Magnesium Hydroxide (Milk Of Magnesia) 30 ml PO DAILYP PRN PRN Reason: Constipation Methocarbamol (Robaxin) 750 mg PO Q6HP PRN PRN Reason: Muscle Spasm Morphine Sulfate (Morphine) 4 mg IV Q4HP PRN PRN Reason: Pain Nadolol (Corgard) 20 mg PO DAILY [facility] Last Admin: 02/02/17 08:32 Dose: 20 mg Naloxone HCl (Narcan) 0.1 mg IV Q2MIN PRN PRN Reason: Opiate Reversal Ondansetron HCl (Zofran) 4 mg IV Q6HP PRN PRN Reason: Nausea And Vomiting Polyethylene Glycol (Miralax) 17 gm PO DAILYP PRN PRN Reason: Constipation Senna (Senokot) 2 tab PO HS [facility] Last Admin: 02/01/17 22:03 Dose: 2 tab Sodium Chloride (Saline Flush) 10 ml IV Q8 [facility] Last Admin: 02/02/17 05:29 Dose: Not Given Throat Lozenges (Cepacol) 1 lozenge PO PRN PRN PRN Reason: Sore Throat Medical - PN: A/P - Time Spent With Patient Total time spent is greater than 50% in coordination of care (as documented) at patient's floor/unit and/or counseling patient: - Narrative A/P Narrative: #1. Left hip fracture. s/p surgery, Patient appears to be fairly low risk for surgical complications, other than her age. 2. Endocrine. Type 2 diabetes. Accu-Cheks and sliding scale insulin. glucose well controlled. resume metoformin 3. CODE STATUS: Chart notes a DNR CODE STATUS. Patient confirms this. She would like either her son or her daughter to act as her POA. 4. DVT prophylaxis: lovenox sq 5. History of hypertension Resume aspirin, nadolol, lisinoprilHCTZ, when stable. Lasix is on hold for now, while she is n.p.o. #6. History of depression. Resume citalopram after surgery. 7. History of allergies. Resume loratadine. HTN: bp low normal, hold bp meds for now, resume once bp improves. Medical - PN: Qual - VTE Deep Vein Thrombosis/Pulmonary Embolism Present on Admission: No
[2017-02-02] MEDS: ENOXAPARIN 40 MG/0.4 ML SYRINGE SQ SCH (14:56)
[2017-02-02] MEDS: SENNOSIDES 1 TABLET PO SCH (21:06)
[2017-02-02] MEDS: HYDROcodone/APAP 10/325MG TABLET PO PRN (22:51)
[2017-02-02] MEDS: METHOCARBAMOL 750 MG TABLET PO PRN (22:51)
[2017-02-03] MEDS: NACL 0.9% W/KCL 20MEQ 1,000 ML IV SCH ×2 (05:24→07:28)
[2017-02-03 05:56] LABS: Basophils # (Auto) 0 K/mcL (0.0-0.3); Basophils % (Auto) 0.5 % (0.0-2.0); Eosinophils # (Auto) 0.3 K/mcL (0.0-0.7); Eosinophils % (Auto) 3.2 % (0.0-7.0); Lymphocytes # (Auto) 2.4 K/mcL (1.5-4.8); Mean Cell Volume 87.4 fL (80.0-100.0); Mean Corpuscular HGB Conc 33.4 g/dL (31.0-36.0); Mean Corpuscular Hemoglobin 29.2 pg (26.0-34.0); Monocytes # (Auto) 0.9 K/mcL (0.1-0.9); Monocytes % (Auto) 9.3 % (1.0-12.0); Platelet Count 179 K/mcL (140-440); RBC 3.18 M/mcL (4.00-5.20); Red Cell Distribution Width 13.9 % (11.5-14.5)
[2017-02-03 06:41] LABS: ALT/SGPT 47 U/l (0-40); Albumin 2.9 gm/dL (3.2-5.2); Albumin/Globulin Ratio 1.4 (1.0-2.3); Alkaline Phosphatase 48 U/L (39-117); Bilirubin,Direct < 0.2 mg/dL (0.0-0.3); Blood Urea Nitrogen 21 mg/dl (8-23); Gamma Glutamyl Transpeptidase 103 U/L (5-36); Magnesium 1.9 mg/dL (1.6-2.5); Uric Acid 6.4 mg/dL (2.5-8.0)
[2017-02-03] MEDS: 0.9 % SODIUM CHLORIDE 10 ML SYRINGE IV SCH (06:48)
[2017-02-03] MEDS: METHOCARBAMOL 750 MG TABLET PO PRN (07:34)
[2017-02-03] MEDS: HYDROcodone/APAP 10/325MG TABLET PO PRN (07:35)
[2017-02-03] MEDS: ENOXAPARIN 40 MG/0.4 ML SYRINGE SQ SCH (07:37)
[2017-02-03] MEDS: NADOLOL 20 MG TABLET PO SCH (07:38)
[2017-02-03] MEDS: FUROSEMIDE 20 MG TABLET PO SCH (07:38)
[2017-02-03] MEDS: ASPIRIN 325 MG ENTERIC COATED TABLET PO SCH (07:38)
[2017-02-03] MEDS: LORATADINE 10 MG TABLET PO SCH (07:38)
[2017-02-03] MEDS: FISH OIL 1,000 MG CAPSULE PO SCH (07:39)
[2017-02-03] MEDS: CITALOPRAM 20 MG TABLET PO SCH (07:40)
[2017-02-03] MEDS: INSULIN LISPRO 1 UNIT/0.01 ML UNIT SQ SCH ×2 (07:50→12:41)
--- NOTE | 2017-02-03 07:54 | Orthopedic Progress Note ---
Subjective Patient information: Note initiated : 02/03/17 at 7:52 am Service Date, if different from initiated Date: [] Patient: Trang Caraballo 81 y/o F admitted on 01/31/17 for Left Hip Injury/Left Hip Fracture. Chief Complaint: [left hip surgery] Patient is POD#2 s/p left hip gamma nail. She is doing well. She reports mild pain but it is overall well controlled. She denies CP, SOB, numbness/tingling in the extremities. She is ready to d/c to SNF today. Objective Vital signs: Vital Signs Temp Pulse Resp BP Pulse Ox 02/03/17 04:00 97.1 F 87 16 113/53 92 02/03/17 00:00 97.7 F 95 H 16 110/64 91 02/02/17 20:35 99.0 F H 80 16 110/57 96 02/02/17 18:40 95 02/02/17 15:56 98.4 F 93 H 16 119/57 95 02/02/17 11:17 98.2 F 92 H 16 104/62 93 02/02/17 08:39 93 Intake and Output 02/02/17 02/03/17 02/03/17 21:59 05:59 13:59 Intake Total 1700 / 1700 1300 / 1300 Output Total 751 / 751 Balance 949 / 949 1299 / 1299 Intake: IV 1000 / 1000 1000 / 1000 NaCl 0.9% W/KCl 20Meq 1000 / 1000 1000 / 1000 1000ML 1,000 ml @ 84 mls/ hr IV .[id number] [facility] Rx#: [id number] Oral 700 / 700 300 / 300 Output: Urine Catheter Amount 750 / 750 # of times incontinent of urine Other: # Bowel Movements 1 Weight 184 lb 8 oz Intake & Output: Intake & Output 02/02/17 02/03/17 02/03/17 21:59 05:59 13:59 Intake Total 1700 / 1700 1300 / 1300 Output Total 751 / 751 Balance 949 / 949 1299 / 1299 Weight 184 lb 8 oz Intake: IV 1000 / 1000 1000 / 1000 NaCl 0.9% W/KCl 20Meq 1000 / 1000 1000 / 1000 1000ML 1,000 ml @ 84 mls/ hr IV .[id number] [facility] Rx#: [id number] Oral 700 / 700 300 / 300 Output: Urine Catheter Amount 750 / 750 # of times incontinent of urine Other: # Bowel Movements 1 Incision: Yes clean and dry Dressing: Yes clean, Yes dry, Yes intact Weight bearing status: as tolerated (with assistive device) Neurological exam IM: Yes alert, Yes oriented X3, Yes motor sensory intact, Yes neurovascular intact Extremities exam IM: No calf tenderness, No Terry's sign, Yes Foot pink and warm - Periperhal Pulses Peripheral pulses: 2+: dorsalis pedis (L), dorsalis pedis (R), posterior tibialis (L), posterior tibialis (R) - Labs CBC & BMP: 02/03/17 03:49 02/03/17 03:49 Labs: Orthopedic Labs 02/03/17 02/02/17 03:49 04:17 PT 14.8 H 14.5 INR 1.1 1.1 02/03/17 02/02/17 02/01/17 03:49 04:17 20:06 Hgb 9.3 L 11.0 L 12.4 Hct 27.8 L 32.5 L 37.0 02/01/17 04:15 Hgb 12.7 Hct 38.3 Assessment and Plan (1) Fracture of hip POD #2 s/p left hip gamma nail: -d/c planning to [facility] today if bed available. -pain control -DVT prophylaxis with Rx per Dr. Chauhan's orders -Follow up in clinic in 2 weeks for f/u and staple removal -dressing change prior to d/c today with silver nitrate placement bandage over brant Status: Acute
[2017-02-03] MEDS ORDERED: metFORMIN 500 MG TAB.XL.24H PO SCH (08:00)
[2017-02-03] MEDS ORDERED: CIPROFLOXACIN 500 MG TABLET PO SCH (09:00)
--- NOTE | 2017-02-03 12:08 | Discharge Summary ---
Medical - DS: Prov Patient information: Note initiated : 02/03/17 at 11:58 am Patient: Trang Caraballo 81 y/o F admitted on 01/31/17 for Left Hip Injury/Left Hip Fracture. Date of admission: 01/31/17 23:20 Discharge date: 02/03/17 Primary care physician: Chuck Isabel Admitting clinician: Celine Castillo Consults: 02/02/17 16:22 Consult to Physician [CONS] Routine Comment: Consulting Provider: [facility] Reason For Exam: Physician to Consult Dr. Chuck Chauhan, orthopedics Attending physician on discharge: Celine Castillo Medical - DS: Meds - Discharge Medications Prescriptions: Aspirin 81 mg PO DAILY #1 tab.chew HYDROcodone/APAP 10/325MG [Walker 10/325Mg] 1 - 2 tab PO Q4H PRN #60 tablet PRN Reason: Pain Active and Home Medications: Discharge medications: Tylenol 650 mg every 6 hours as needed Aspirin 81 mg daily Lovenox 40 mg subcu daily, 4-6 weeks, as directed by or so, Dr. Chauhan Dulcolax suppository every 3 days as needed 10 mg Ciprofloxacin 500 mg p.o. twice daily 7 days Celexa 20 mg daily Colace 100 mg p.o. twice daily as needed Fish oil 1000 mg daily Lasix 20 mg daily Glucose tabs 15 g p.o. as needed hypoglycemia Walker 10/325 every 4 hours as needed next line Claritin 10 mg p.o. daily Milk of magnesia 30 mL p.o. daily as needed Metformin 500 mg p.o. every morning with breakfast Methocarbamol 750 mg every 6 hours as needed muscle spasms Nadolol 20 mg p.o. daily Naloxone 0.1 mg IV every 2 minutes as needed Zofran 4 mg sublingual every 6 hours as needed nausea MiraLAX 17 g p.o. daily as needed Senna 2 tabs p.o. nightly as needed constipation LisinoprilHCTZ 2012 0.5, is on hold, As blood pressure is running low normal postop. Blood pressure should be checked daily, and resume this when needed. Previous home Medications: omega-3 fatty acids-fish oil 300 mg-1,000 mg capsule 1 each PO DAILY #30 cap 09/27 [Rx Confirmed 02/01/17 Last Taken 01/31/17] loratadine 10 mg tablet 10 mg PO DAILY #90 tab 09/12/16 [Rx Confirmed 02/01/17 Last Taken 01/31/17] citalopram 20 mg tablet 20 mg PO DAILY #90 tab 10/27/16 [Rx Confirmed 02/01/17 Last Taken 01/31/17] lisinopril 20 mg-hydrochlorothiazide 12.5 mg tablet 1 tab PO DAILY #90 tab 10/27 [Rx Confirmed 02/01/17 Last Taken 01/31/17] aspirin 81 mg tablet,delayed release 81 mg PO DAILY #90 tab 11/03/16 [Rx Confirmed 02/01/17 Last Taken 01/31/17] metformin ER 500 mg tablet,extended release 24 hr 500 mg PO DAILY #90 tab [Rx Confirmed 02/01/17 Last Taken 01/31/17] nadolol 20 mg tablet 20 mg PO DAILY #90 tab 11/03/16 [Rx Confirmed 02/01/17 Last Taken 01/31/17] furosemide 20 mg tablet 20 mg PO QDAY #30 tab 01/25/17 [Rx Confirmed 02/01/17 Last Taken 01/31/17] Aspirin [Ecotrin] 325 mg PO DAILY #30 tab.ec 02/02/17 [Rx Last Taken Unknown] HYDROcodone/APAP 10/325MG [Walker 10/325Mg] 1 - 2 tab PO Q4H PRN #60 tablet 02/02 [Rx Last Taken Unknown] Medical - DS: Hosp Hospital course: Mr. Caraballo is a 81 year old F February 01, 2017: History of present illness: Ms. Caraballo is a 81 year old woman who lives at [place] in an assisted living apartment. She says yesterday she was walking towards her bathroom with a walker, and the walker seem to get away from her moving forward, and she could not catch herself, and then fell. She had immediate pain in the left hip. She reports she is also been having a lot of pain in the left knee lately, and is not sure that she is not having side effects from medication she was given for that. She says she has also been feeling a little dizzy with some changes in her medications lately. She has had some occasional nausea but not persistent. She notes that the walker she was using was brand-new and had wheels. Otherwise, she denies recent fever or chills, headaches, new eye or ear symptoms , sore throat. She notes she has had a cough for several months, which she blames on allergies. She denies chest pain or palpitations, shortness of breath or wheezing, abdominal pain, nausea or vomiting, diarrhea or constipation , dysuria. ER evaluation did show a fracture of her left hip. 02/02: Pt seen examined, no acute complaints or concerns, s/p surgery doing well,. tolerating po diet well. ok to d/c sandoval if able to bp and glucose are at goals. February 03: Hospital course: This patient was admitted for her hip fracture. She underwent a gamma nail repair of her left hip intertrochanteric fracture, by Dr. Chauhan, on February 01, 2017. She has done well postop, although continues to have some left hip pain. H and H dipped a little this morning, but on follow-up were improved. The patient seems ready and stable for transfer to rehab. -Urine culture did come back positive for UTI for Klebsiella pneumonia, which is pansensitive. Today, she is awake and alert. She reports continued pain in the left hip, particularly with walking. She thinks she might be constipated. She is quite forgetful. She denies subjective fever chills, chest pain or palpitations, shortness of breath, abdominal pain, nausea or vomiting or diarrhea, or dysuria. On exam, she is awake and alert, but does appear quite forgetful. She does seem frail. Neck is supple without obvious lymphadenopathy or JVD Cardiac exam shows regular rate and rhythm. Lungs, show scattered fine crackles bilaterally. Abdomen is soft and nontender without obvious masses. Extremities: Left hip is bandaged, with a clean and dry dressing. She has only mild lower leg edema. Assessment and plan: 1. Left hip fracture. Status post left hip gamma nail. She is now ready for transfer to rehab. -We will continue with subcu Lovenox for DVT prophylaxis, unless Dr. Saravia decides to change her over to high-dose aspirin. -Continue physical therapy and occupational therapies. -Also, she reports that she fell while trying to use her brand-new walker. That should be reevaluated by physical therapy. Follow-up with Dr. Chauhan in clinic in 2 weeks for staple removal. Dressing was changed today, and silver nitrate placement bandage over brant. Further wound care orders per orthopedics. 2. Endocrine. Type 2 diabetes. Accu-Cheks are ranging from 120-182. Oral intake seems good at this point. Resume metformin. She should probably have Accu-Cheks 1-2 times a day while at rehab. 3. CODE STATUS: Chart notes a DNR CODE STATUS. Patient confirms this. She would like either her son or her daughter to act as her POA. 4. DVT prophylaxis: Subcu Lovenox.. 5. History of hypertension Resumed aspirin, nadolol, Lasix. LisinoprilHCTZ is on hold, as the patient's blood pressure has been running a bit low. Blood pressure should be rechecked daily while at rehab, and resume this medication once blood pressure is running consistently greater than 140/80. 6. Hyperlipidemia #7. History of depression. Resume citalopram . 8. History of allergies. Resume loratadine. 9. Infectious disease. Urine culture was positive for Klebsiella. Ciprofloxacin 500 mg p.o. twice daily was started today. The facility may want to have pharmacy verify if her dose needs to be lowered. I would continue this for about 7 days. Discharge diagnosis: Left hip fracture. Urinary tract infection. Postop anemia.DM2. - Time Spent with Patient Total time spent providing and/or coordinating discharge services: Greater than 30 minutes Medical - DS: Exam - Constitutional Vitals: Vital Signs Temp Pulse Resp BP Pulse Ox 02/03/17 08:05 98.9 F 18 109/58 97 02/03/17 04:00 97.1 F 87 16 113/53 92 02/03/17 00:00 97.7 F 95 H 16 110/64 91 02/02/17 20:35 99.0 F H 80 16 110/57 96 02/02/17 18:40 95 02/02/17 15:56 98.4 F 93 H 16 119/57 95 Intake and Output 02/02/17 02/03/17 02/03/17 21:59 05:59 13:59 Intake Total 1700 / 1700 1300 / 1300 60 / 60 Output Total 751 / 751 1 / 1 Balance 949 / 949 1299 / 1299 60 / 60 Intake: IV 1000 / 1000 1000 / 1000 NaCl 0.9% W/KCl 20Meq 1000 / 1000 1000 / 1000 1000ML 1,000 ml @ 84 mls/ hr IV .[id number] [facility] Rx#: [id number] Oral 700 / 700 300 / 300 60 / 60 Output: Urine Catheter Amount 750 / 750 # of times incontinent of urine Other: Meal Breakfast Percent of Meal Consumed 50% Feeding Ability Independent # Bowel Movements 1 Weight 184 lb 8 oz Medical - DS: Data Labs on day of discharge: Labs from last 24 hours 02/03/17 02/03/17 02/03/17 10:35 03:49 03:49 WBC 9.8 RBC 3.18 L Hgb 10.3 L 9.3 L Hct 31.1 L 27.8 L MCV 87.4 MCH 29.2 MCHC 33.4 RDW 13.9 Plt Count 179 MPV 8.2 Gran % 62.0 Lymph % (Auto) 25.0 [place] % (Auto) 9.3 Eos % (Auto) 3.2 Baso % (Auto) 0.5 Gran # 6.1 Lymph # (Auto) 2.4 [place] # (Auto) 0.9 Eos # (Auto) 0.3 Baso # (Auto) 0 PT 14.8 H INR 1.1 Sodium Potassium Chloride Carbon Dioxide Anion Gap BUN Creatinine GFR Calculation Glucose Uric Acid Calcium Phosphorus Magnesium Total Bilirubin Direct Bilirubin GGT AST ALT Alkaline Phosphatase Lactate Dehydrogenase Total Protein Albumin Globulin Albumin/Globulin Ratio Triglycerides 02/03/17 03:49 WBC RBC Hgb Hct MCV MCH MCHC RDW Plt Count MPV Gran % Lymph % (Auto) [place] % (Auto) Eos % (Auto) Baso % (Auto) Gran # Lymph # (Auto) [place] # (Auto) Eos # (Auto) Baso # (Auto) PT INR Sodium 142 Potassium 4.6 Chloride 109 H Carbon Dioxide 25 Anion Gap 8.0 BUN 21 Creatinine 0.7 GFR Calculation 80 Glucose 115 H Uric Acid 6.4 Calcium 7.5 L Phosphorus 2.1 L Magnesium 1.9 Total Bilirubin 0.4 Direct Bilirubin < 0.2 GGT 103 H AST 34 ALT 47 H Alkaline Phosphatase 48 Lactate Dehydrogenase 212 Total Protein 5.0 L Albumin 2.9 L Globulin 2.1 L Albumin/Globulin Ratio 1.4 Triglycer[address] at 100, low voltage. CXR: NAD Hip xray: L subtroch. fx Urinalysis showed 100 mg of protein, 500 leukocyte esterase, greater than 182 red blood cells, 124 white blood cells Urine culture grew 2 different strains of Klebsiella. The main strain is resistant to ampicillin, but otherwise pansensitive. Medical - DS: A/P - Patient/Caregiver Discharge Instructions Activity: as per physical therapy Diet: Consistent Carbohydrate Additional Instructions: Discharge Instructions: Do the exercises at home that physical therapy gave you. Wear comfortable clothing for your physical therapy. Weight bearing as tolerated. You have the Aquacel Ag dressing, leave in place for 7 days then remove. If dressing becomes soiled (turns black), remove and use gauze 4x4 dressing and silvasorb ointment and change daily. Keep incision clean and dry. You may start showering on post op day #2. To avoid constipation while taking any narcotic pain medication, take an over the counter stool softener/laxative. Use ice packs as directed, on for 20 minutes at a time throughout the day. This and elevation will help with pain and swelling. Call your physician for fevers above 100.5 or pain not controlled by medication. Your prescriptions are with your discharge information. Some medications were electronically transmitted to your pharmacy of choice. See Dr. Chauhan in his clinic in 2 weeks, for staple removal and follow-up. Prescriptions: Aspirin 81 mg PO DAILY #1 tab.chew HYDROcodone/APAP 10/325MG [Walker 10/325Mg] 1 - 2 tab PO Q4H PRN #60 tablet PRN Reason: Pain Other Amb Orders: Aspiration Precautions Location: Determined By Patient Fall Risk Location: Determined By Patient OT Discharge Order Location: Determined By Patient Physical Therapy at Discharge - General Location: Determined By Patient Wound Care/Dressings Location: Determined By Patient Basic Metabolic Panel Time Frame: 2 Days, Location: Determined By Patient Complete Blood Count Time Frame: 2 Days, Location: Determined By Patient - Follow up Plan Follow up with: Chuck Chauhan MD [Physician] - 02/13/17 10:20 am Chuck Isabel DO [Primary Care Provider] - Disposition: [facility] Prognosis: Fair Rehab Potential: Fair Overall status at discharge: patient is progressing back to baseline Medical - DS: Qual - VTE Deep Vein Thrombosis/Pulmonary Embolism Present on Admission: No
[2017-02-03] MEDS ORDERED: FLU VACC QS2017-18 36MOS UP/PF 60 MCG/0.5 ML SYRINGE IM ONE (14:00)
[2017-02-03] MEDS ORDERED: PNEUMOCOCCAL 23-VAL P-SAC VAC 0.5 ML VIAL IM ONE (14:00)
== END 2017-02-03 13:30 | DRG 481 ==
LOC: ED 21:57 → MEDSUR 23:20
PROVIDERS: ADMIT Internal Medicine; ATTEND Internal Medicine